=== PATIENT | male | born 1940 | race Caucasian/White ===

== ENCOUNTER → 2018-03-23 | Outpatient (CLI) | payer MEDICARE, OTHER | LOC: M.MRI 06:58 | DX: M75.101 Unspecified rotator cuff tear or rupture of right shoulder, not specified as traumatic (principal); S46.211A Strain of muscle, fascia and tendon of other parts of biceps, right arm, initial encounter; S43.491A Other sprain of right shoulder joint, initial encounter; M62.511 Muscle wasting and atrophy, not elsewhere classified, right shoulder; M19.011 Primary osteoarthritis, right shoulder; X58.XXXA Exposure to other specified factors, initial encounter; Y93.89 Activity, other specified; Y92.89 Other specified places as the place of occurrence of the external cause; Y99.8 Other external cause status ==

== ENCOUNTER 2021-01-11 06:28 | Inpatient (IN) | payer MEDICARE, OTHER ==
[~2021-01-11] VITALS: Ht 177.8 cm; Wt 78.9 kg
[2021-01-11 06:29] VITALS: BP 122/76
[2021-01-11] MEDS ORDERED: LASIX 40 MG TAB40 MG PO (06:52)
[2021-01-11] MEDS ORDERED: ASA81BEC PO (06:53)
[2021-01-11] MEDS ORDERED: TOPROL XL25 MG PO (06:53)
[2021-01-11] MEDS ORDERED: ALBUTEROL2.5 MG/3 M INH (06:54)
[2021-01-11] MEDS ORDERED: SPIRONOLACTONE25 MG PO (06:55)
[2021-01-11] MEDS ORDERED: XARELTO2.5 MG PO (06:56)
[2021-01-11 07:11] LABS: ABSOLUTE BASOPHILS 0.1 thou/uL (0.0-0.2); ABSOLUTE EOSINOPHILS 0.2 thou/uL (0.0-0.7); ABSOLUTE LYMPHOCYTES 1.8 thou/uL (0.8-5.3); ABSOLUTE MONOCYTES 1.1 thou/uL (0.0-1.2); ABSOLUTE NEUTROPHILS 8.3 thou/uL (1.6-8.1); BASOPHILS 0.7 %; CALCIUM 8.7 mg/dL (8.5-10.1); CREATININE 1.1 mg/dL (0.6-1.3); EOSINOPHILS 2.1 %; HEMATOCRIT 41.7 % (42.0-52.0); HEMOGLOBIN 13.5 gm/dL (14.0-18.0); LYMPHOCYTES 15.9 %; MCHC 32.4 g/dL (28.0-37.0); MCV 86.4 fL (80.0-100.0); MONOCYTES 9.4 %; MPV 8.3 fl. (7.2-11.1); NUCLEATED RBCS 0 /100WBC; PLATELET COUNT* 274 thou/uL (150-400); POLYS 71.9 %; RBC 4.83 mil/uL (4.50-6.00); RDW-CV 15.5 % (10.5-14.5); WBC 11.6 thou/uL (4.0-11.0)
[2021-01-11 07:14] LABS: APTT 34.5 Seconds (25.0-31.3); INR 1.2; PROTIME 12.4 Seconds (9.20-11.50)
[2021-01-11 07:22] LABS: ALBUMIN 3.5 g/dL (3.4-5.0); TOTAL BILIRUBIN 0.4 mg/dL (<0.1-1.0); TOTAL PROTEIN 7.2 g/dL (6.4-8.2)
[2021-01-11] MEDS ORDERED: PROAIR HFA8.5 GM INH (08:46)
[2021-01-11] MEDS ORDERED: AUGMENTIN400 MG/53 PO (08:47)
[2021-01-11] MEDS ORDERED: ELIQUIS5 MG PO (08:48)
[2021-01-11] MEDS ORDERED: LIPITOR 40 MG T40 M1 PO (08:48)
[2021-01-11] MEDS ORDERED: PULMICORT FLEX90 MCG INH (08:49)
[2021-01-11] MEDS ORDERED: PLAVIX 75 MG TA75 MG PO (08:49)
[2021-01-11] MEDS ORDERED: FARXIGA10 MG PO (08:50)
[2021-01-11] MEDS ORDERED: FORMOTEROL20 MCG/2 M INH (08:50)
[2021-01-11] MEDS ORDERED: MUCINEX600 MG PO (08:51)
[2021-01-11] MEDS ORDERED: FUROSEMIDE 20 M20 MG PO (08:51)
[2021-01-11] MEDS ORDERED: COZAAR 25 MG TA25 M1 PO (08:52)
[2021-01-11] MEDS ORDERED: HYDROXYZINE HCL25 M2 PO (08:52)
[2021-01-11] MEDS ORDERED: NICOTINE PATCH1 EAC2 TOP (08:58)
[2021-01-11] MEDS ORDERED: SPIRONOLACTONE25 M1 PO (08:58)
[2021-01-11 11:11] VITALS: BP 115/67
[2021-01-11 11:39] VITALS: BP 120/44
[2021-01-11 16:00] VITALS: BP 151/76
--- NOTE | 2021-01-11 18:58 | NUR ---
PT ADMITTED TO ROOM 224 VIA CART FROM ED AT APPROX 1130. PT ORIENTED TO ROOM AND CALL LIGHT. ADMISSION ASSESSMENT AND HISTORY CHARTED. FALL AGREEMENT SIGNED AND PLACED IN CHART. HOME MEDICATIONS RECONCILED-DR GONZALEZ NOTIFIED. AWAITING CALL BACK. PT A&0X4, FORGETFUL AT TIMES. TRACING SR/ST PACS BBB ON THE USER SUPPORT ANALYST. ON 2L NC SAT UPPER 90'S. PT HAS SHORTNESS OF BREATH WITH EXERTION. PT UP WITH SBA-IMPUSLIVE AT TIMES. BED ALARM IN PLACE. CALL LIGHT WITHIN REACH. WILL CONTINUE PLAN OF CARE.
[2021-01-11 20:00] VITALS: BP 129/86
[2021-01-12] VITALS (7 sets, daily range): BP systolic 96–137; BP diastolic 58–95
--- NOTE | 2021-01-12 00:49 | NUR ---
ATTEMPTED TO PICTURE WOUND ON L GREAT TOE. PT REFUSED SAYING IT WILL HURT MY TOE NAIL. REASSURANCE PROVIDED PT STILL REFUSING.
--- NOTE | 2021-01-12 02:37 | NUR ---
PT ALERT ORIENTED IMPULSIVE. PT GETTING OUT OF BED WITHOUT CALLING STAFF. PT TEACHING RE FALLS. 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 PT REFUSING WOUND CARE AND TO LET STAFF PICTURE WOUND. PT TEACHING RE WOUND CARE. PT ALSO REFUSING TO DO ADAM CARE ON HIMSELF AND REFUSING TO LET STAFF ASSIST.
[2021-01-12 03:51] LABS: HEMOGLOBIN 13.7 gm/dL (14.0-18.0); MCH 27.8 pg (26.0-34.0); MCHC 31.9 g/dL (28.0-37.0); MCV 87.2 fL (80.0-100.0); MPV 8.3 fl. (7.2-11.1); RBC 4.92 mil/uL (4.50-6.00); RDW-CV 15.4 % (10.5-14.5); WBC 10.6 thou/uL (4.0-11.0)
[2021-01-12 04:33] LABS: CALCIUM 8.3 mg/dL (8.5-10.1); CREATININE 1.2 mg/dL (0.6-1.3); POTASSIUM 4.5 mmol/L (3.5-5.1)
--- NOTE | 2021-01-12 11:42 | EKG ---
[place] [address] ELECTROCARDIOGRAM REPORT Name: TONEYTIM Room: [address] ADM IN M.R.#: [id number] Admission: 01/11/21 Attend Phys: Luis Manuel Hernandez Discharge: Date of : 40 Date of Service: 01/11/21 0626 Report #: [id number] THIS REPORT FOR: //name// [facility] ED Test Date: 2021-01-11 Test Time: 06:26:34 Pat Name: TIM ZIEGLER Department: Room: [facility] Gender: M Loan Interviewer: : 1940 Requested By: Catrina Guerra Order Number: [id number] MD: Jack Varela Measurements Intervals [place] Rate: 100 P: 67 [place]: 177 QRS: -63 QRSD: 164 T: 107 QT: 401 QTc: 518 Interpretive Statements Sinus tachycardia with rare PACs Atrial premature complexes Left bundle branch block with left axis deviation No previous tracing Electronically Signed On 01-12-2021 11:41:54 CDT by Jack Varela [email or web address] <ELECTRONICALLY SIGNED> By: Jack Varela MD, [facility] 01/12/21 1141 0626 0626 Jack Varela MD, [facility] /EPI
--- NOTE | 2021-01-12 12:53 | NUR ---
CM ASSESSEMENT: PT A&O, INDPENDENT WITH ADL'S, ACTIVE AND DRIVES. PT RESIDES AT HOME ALONE. PT USES 0 DME. PT HAS PAST HX OF HH. PT HAS 0 HX OF SNF. PT CURRENTLY ON 2L O2 AND DID NOT HAVE HOME OXYGEN PRIOR TO ADMIT. CM WILL REMAIN AVAILABLE TO ASSIST AND FOLLOW NEEDED.
--- NOTE | 2021-01-12 17:50 | 2DMMODE ---
[place] [address] 2 D/M-MODE ECHOCARDIOGRAM Name: TIM ZIEGLER Room: [address] IN [facility]#: [id number] Admission: 01/11/21 Attend Phys: Luis Manuel Hernandez Discharge: Date of : 40 Date of Service: 01/12/21 1750 Report #: [id number] THIS REPORT FOR: cc: Grant Manzano MD, Todd A. MD Holkins,Jack Patel MD [facility] ~ APPROVED REPORT Study performed: 01/12/2021 15:04:32 EXAM: Comprehensive 2D, Doppler, and color-flow Echocardiogram Patient Location: In-Patient Room #: [facility] Status: routine BSA: 1.97 HR: 108 bpm BP: 112/68 mmHg Rhythm: NSR Other Information Study Quality: Good Indications Congestive Heart Failure 2D Dimensions IVSd: 10.64 (7-11mm) LVOT Diam: 21.27 (18-24mm) LVDd: 62.93 mm PWd: 10.64 (7-11mm) Ascending Ao: 33.28 (22-36mm) LVDs: 51.83 (25-40mm) Aortic Root: 30.95 mm Volumes Left Atrial Volume (Systole) LA ESV Index: 29.50 mL/m2 Aortic Valve AoV Peak Shlomo.: 2.61 m/s AO Peak Gr.: 27.26 mmHg LVOT Max P.87 mmHg AO Mean Gr.: 16.69 mmHg LVOT Mean P.01 mmHg LVOT Max V: 0.68 m/s AO V2 VTI: 53.76 cm LVOT Mean V: 0.47 m/s NURIS (VTI): 0.83 cm2 LVOT V1 VTI: 12.62 cm AI [place]: 5.34 m/s2 [place] [address] 2 D/M-MODE ECHOCARDIOGRAM Name: TIM ZIEGLER Room: [address] IN [facility].#: [id number] Admission: 01/11/21 Attend Phys: Luis Manuel Hernandez Discharge: Date of : 40 Date of Service: 01/12/21 1750 Report #: [id number] AI PHT: 221.27 ms TDI Lateral E' Shlomo.: 0.08 m/s Tricuspid Valve RAP Estimate: 5.00 mmHg TR Peak Gr.: 40.60 mmHg RVSP: 45.00 mmHg PA Pressure: 45.00 mmHg Left Ventricle The left ventricle is normal size. There is global hypokinesis of the left ventricle. There is normal left ventricular wall thickness. Left ventricular systolic function is severely decreased. LVEF is 25-30%. The left ventricular diastolic function is normal. Right Ventricle The right ventricle is normal size. The right ventricular systolic function is normal. Atria The left atrium size is normal. The right atrium size is normal. Aortic Valve Moderate aortic valve sclerosis. Mild to moderate aortic regurgitation. Moderate aortic stenosis. Mitral Valve The mitral valve is normal in structure. Mild mitral regurgitation. No evidence of mitral valve stenosis. Tricuspid Valve The tricuspid valve is normal in structure. Mild tricuspid regurgitation. Moderate pulmonary hypertension. Pulmonic Valve The pulmonary valve is normal in structure. There is no pulmonic valvular regurgitation. Great Vessels The aortic root is normal in size. IVC is normal in size and collapses >50% with inspiration. Pericardium There is no [place] [address] 2 D/M-MODE ECHOCARDIOGRAM Name: TONEYTIM Room: [address] ..#: [id number] Admission: 01/11/21 Attend Phys: Luis Manuel Hernandez Discharge: Date of : 40 Date of Service: 01/12/21 1750 Report #: [id number] <Conclusion> The left ventricle is normal size. There is normal left ventricular wall thickness. Left ventricular systolic function is severely decreased. LVEF is 25-30%. The right ventricle is normal size. The left atrium size is normal. Moderate aortic valve sclerosis. Mild to moderate aortic regurgitation. Moderate aortic stenosis. The mitral valve is normal in structure. The tricuspid valve is normal in structure. Mild tricuspid regurgitation. Moderate pulmonary hypertension. IVC is normal in size and collapses >50% with inspiration. There is no pericardial effusion. There is global hypokinesis of the left ventricle. <ELECTRONICALLY SIGNED> By: Jack Varela MD, [facility] 01/12/211749 49 49 Jack Varela MD, FACC /INF
--- NOTE | 2021-01-12 18:54 | NUR ---
Pt has been cooperative with care, but has problems remembering plan of care and situation. Pulled out right hand IV.
--- NOTE | 2021-01-12 19:30 | NUR ---
bandage was removed from left great toe. Some old blood around toenail, but no open wound. Left open to air.
--- NOTE | 2021-01-13 02:38 | NUR ---
PT ALERT, ORIENTED, IMPULSIVE. OOB FOR VOID WITHOUT WAITING FOR STAFF. PT TEACHING RE FALLS AND WAITING FOR STAFF. 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
[2021-01-13 04:13] VITALS: BP 99/70
--- NOTE | 2021-01-13 06:04 | NUR ---
PT UP MANY TIMES THIS SHIFT WITHOUT CALLING FOR ASSIST. PT REMINDED TO CALL FOR ASSIST. FALL PRECAUTIONS IN PLACE.
[2021-01-13 08:10] VITALS: BP 114/70
[2021-01-13 12:00] VITALS: BP 103/68
--- NOTE | 2021-01-13 13:31 | NUR ---
PLAN OF CARE: PHYSICIAN INFORMS THAT THE PT IS NOT MEDICALLY STABLE TODAY. PLAN FOR THE PT TO REMAIN INPT 24-48 MORE HRS. PT'S DTR/DPOA INFORMS CM THAT THE PT HAS HOME OXYGEN (USES PRN), BUT IS NOT COMPLIANT WITH USE AND SMOKES IN THE HOME. CM WILL REMAIN AVAILABLE TO ASSIST AND FOLLOW NEEDED.
[2021-01-13 16:00] VITALS: BP 116/72
[2021-01-13 21:53] VITALS: BP 99/68
[2021-01-13 23:48] VITALS: BP 93/54
[2021-01-14 03:44] VITALS: BP 95/50
[2021-01-14 07:30] VITALS: BP 105/73
[2021-01-14] MEDS ORDERED: CEFDINIR300 MG PO (10:20)
[2021-01-14] MEDS ORDERED: PREDNISONE 10 M10 MG PO (11:29)
[2021-01-14 12:00] VITALS: BP 105/65
[2021-01-14 12:43] VITALS: BP 105/73
--- NOTE | 2021-01-14 13:27 | NUR ---
PT'S BEDSIDE RN, ZACARIAS, INFORMED CM RT INFOMRED HER PT HAS NO ADD'L O2 NEEDS. ZACARIAS SPK WITH PTS DTR WHO CONFIRMED PT HAS O2 SUPPLIES AT HOME. PER ZACARIAS, PT DTR WANTS [facility] AT HOME FOR HH. CM FAXED REFERRAL
--- NOTE | 2021-01-14 14:00 | NUR ---
PATIENT DISCHARGED TO HOME THIS AFTERNOON WITH DAUGHTER. PATIENT ON CONT 02 AT HOME. VERBALIZES UNDERSTANDING OF PAPERWORK AND SCRIPTS SENT OVER TO PREFFERED PHARMACY. EKG WAS DONE THIS AM FOR INCREASED PVC'S, DR. SCHMITZ ROUNDING ON FLOOR AND ASKED COURTESY TO VIEW THE EKG AND DR. RIVERA NOTIFIED. NO NEW ORDERS. IV ABX AND ONE TIME STEROID DOSE GIVEN ORDERED. PATIENT TAKEN OUT VIA WHEELCHAIR WITH ALL BELONGINGS.
--- NOTE | 2021-01-14 15:55 | EKG ---
[place] [address] ELECTROCARDIOGRAM REPORT Name: TIM ZIEGLER Room: [address] DIS IN M.R.#: [id number] Admission: 01/11/21 Attend Phys: Luis Manuel Hernandez Discharge: 01/14/21 Date of : 40 Date of Service: 01/14/21810 Report #: [id number] THIS REPORT FOR: //name// [facility] Test Date: 2021-01-14 Test Time: 08:11:14 Pat Name: TIM ZIEGLER Department: Room: [address] Gender: M Liquor Tester: : 1940 Requested By: Yeison Orr Order Number: [id number] Natasha MD: Jack Varela Measurements Intervals [place] Rate: 83 P: 41 [place]: 181 QRS: -60 QRSD: 169 T: 111 QT: 457 QTc: 537 Interpretive Statements Sinus rhythm with moderately frequent PACs Left bundle branch block Baseline wander in lead(s) V1 Compared to ECG 01/11/2021 06:26:34 Sinus tachycardia no longer present Atrial premature complex(es) persist Electronically Signed On 01-14-2021 15:55:14 CDT by Jack Varela [email or web address] <ELECTRONICALLY SIGNED> By: Jack Varela MD, [facility] 01/14/21 1555 0 0 Jack Varela MD, [facility] /EPI
== END 2021-01-14 14:52 | disposition home health service (06) | DRG 177 ==
LOC: M.ERS 06:28 → M.TBA-ER 10:03 → M.2W 10:03
PROVIDERS: Internal Medicine; Personal Emergency Response Attendant; ADMIT Internal Medicine; ATTEND Internal Medicine
DX: J15.6 Pneumonia due to other Gram-negative bacteria (principal); I50.33 Acute on chronic diastolic (congestive) heart failure; E87.1 Hypo-osmolality and hyponatremia; J44.0 Chronic obstructive pulmonary disease with (acute) lower respiratory infection; E78.5 Hyperlipidemia, unspecified; I11.0 Hypertensive heart disease with heart failure; I25.10 Atherosclerotic heart disease of native coronary artery without angina pectoris; Z20.822 Contact with and (suspected) exposure to COVID-19; Z82.49 Family history of ischemic heart disease and other diseases of the circulatory system; Z79.82 Long term (current) use of aspirin; Z79.899 Other long term (current) drug therapy